=== PATIENT | female | born 1950 | race Caucasian/White ===

== ENCOUNTER 2017-01-18 10:26 | Inpatient (IN) | payer MEDICARE, OTHER ==
[~2017-01-18] VITALS: Ht 165.1 cm; Wt 69.8 kg
[2017-01-18] MEDS ORDERED: SIMV-259 GT (10:39)
[2017-01-18] MEDS ORDERED: FOLI1TAB15 PO (10:39)
[2017-01-18] MEDS ORDERED: GLYC1SOL PO (10:39)
[2017-01-18] MEDS ORDERED: POTA-9 PO (10:39)
[2017-01-18] MEDS ORDERED: FERR220E3 GT (10:39)
[2017-01-18 10:42] LABS: GLUCOSE,POINT OF CARE 105 MG/DL (70-110)
[2017-01-18] MEDS ORDERED: ALBUTEROL SULFATE 5 MG/ML 20 ML NEB SOLN [BULK] NEB ONE (11:30)
[2017-01-18] MEDS ORDERED: IPRATROPIUM BROMIDE 0.5 MG/2.5 ML NEB SOLUTION NEB ONE (11:30)
[2017-01-18] MEDS ORDERED: HEPARIN SODIUM,PORCINE 100 UNITS/ML 5 ML VIAL IVP ONE (12:00)
[2017-01-18 12:20] LABS: BASOPHILS # (AUTO) 0.02 K/uL (0.00-0.20); BASOPHILS % (AUTO) 0.1 % (0.0-2.0); EOSINOPHILS # (AUTO) 0.35 K/uL (0.00-0.70); EOSINOPHILS % (AUTO) 2.54 % (1.0-6.0); HEMATOCRIT 39.4 % (36-46); HEMOGLOBIN 12.3 g/dL (12.0-16.0); LYMPHOCYTES # (AUTO) 2.7 K/uL (1.0-4.8); LYMPHOCYTES % (AUTO) 19.2 % (22.0-44.0); MEAN CORPUSCULAR HEMOGLOBIN 29.1 pg (26.0-34.0); MEAN CORPUSCULAR HGB CONC 31.3 G/dL (31.0-37.0); MEAN CORPUSCULAR VOLUME 93 fL (80-100); MONOCYTES # (AUTO) 0.7 K/uL (0.1-1.0); MONOCYTES % (AUTO) 5.1 % (2.0-9.0); NEUTROPHILS # (AUTO) 10.1 K/uL (1.8-7.7); PLATELET COUNT (AUTO) 260 K/uL (150-450); RED BLOOD CELL COUNT(AUTO) 4.23 MIL/uL (4.00-5.20); WHITE BLOOD COUNT (AUTO) 13.8 K/uL (4.5-11.0)
[2017-01-18 12:39] LABS: ALANINE AMINOTRANSFERASE 24 U/L (12-78); ALBUMIN 2.9 g/dL (3.4-5.0); ANION GAP 8 mmol/L (8-16); ASPARTATE AMINOTRANSFERASE 19 U/L (15-37); BILIRUBIN,TOTAL 0.3 mg/dL (0.1-1.0); CALCIUM, TOTAL 9.7 mg/dL (8.8-10.5); CARBON DIOXIDE 30 mmol/L (22-29); CHLORIDE 102 mmol/L (98-107); CREATININE 0.78 mg/dL (0.60-1.30); GLOMERULAR FILTR. RATE CALC > 60 mL/min (>60); POTASSIUM 4.8 mmol/L (3.5-5.1); SODIUM SERUM 140 mmol/L (136-145); TOTAL PROTEIN, SERUM 7.7 g/dL (6.4-8.2); UREA NITROGEN, BLOOD 23 mg/dL (7-18)
[2017-01-18 12:49] LABS: APPEARANCE,URINE CLEAR (CLEAR); GLUCOSE, URINE (UA) NEGATIVE (NEGATIVE); KETONES,URINE NEGATIVE (NEGATIVE); LEUKOCYTE ESTERASE ,URINE TRACE (NEGATIVE); OCCULT BLOOD,URINE NEGATIVE (NEGATIVE); PROTEIN,URINE NEGATIVE (NEGATIVE)
[2017-01-18 12:56] LABS: ADD UA MICROSCOPIC YES
[2017-01-18 12:57] LABS: RBC,URINE None Seen /HPF (0-2); SQUAMOUS EPITHELIAL CELL,UR Few /LPF (None Seen)
[2017-01-18 13:46] LABS: LACTIC ACID 2.1 mmol/L (0.4-2.0)
[2017-01-18] MEDS ORDERED: NALOXONE HCL 1 MG/ML 2 ML SYG IVP ONE (14:15)
[2017-01-18 15:02] LABS: REFLEX LACTIC ACID? YES YES
[2017-01-18 17:09] VITALS: BP 127/83
[2017-01-18] MEDS ORDERED: ONDANSETRON HCL 4 MG/2 ML VIAL IVP PRN (19:15)
[2017-01-18] MEDS ORDERED: 0.9% SODIUM CHLORIDE 10 ML SYRINGE IVP PRN (19:15)
[2017-01-18] MEDS ORDERED: OxyCODONE HCL/ACETAMINOPHEN 5-325 MG TABLET PO PRN ×2 (19:15)
[2017-01-18] MEDS ORDERED: MAGNESIUM HYDROXIDE SUSPENSION 30 ML UDCUP PO PRN (19:15)
[2017-01-18] MEDS ORDERED: ACETAMINOPHEN 325 MG TABLET PO PRN (19:15)
[2017-01-18 19:33] VITALS: BP 148/76
[2017-01-18] MEDS: CefTRIAXone 1 GM/DEXTROSE 50 ML IV SCH (21:17)
[2017-01-18] MEDS: GLYCOPYRROLATE 1 MG TABLET PO SCH (21:17)
[2017-01-18] MEDS: FOLIC ACID 1 MG TABLET PO SCH (21:17)
[2017-01-18] MEDS: POTASSIUM CHLORIDE 20 MEQ ER TABLET PO SCH (21:17)
[2017-01-18] MEDS: SIMVASTATIN 10 MG TABLET GT SCH (21:17)
[2017-01-18] MEDS: DOCUSATE SODIUM 100 MG CAPSULE PO SCH (21:17)
[2017-01-18] MEDS: PANTOPRAZOLE SODIUM 40 MG/VIAL IVP SCH (21:17)
[2017-01-19 00:05] VITALS: BP 148/83
[2017-01-19 04:38] VITALS: BP 140/73
[2017-01-19 06:34] LABS: BASOPHILS % (AUTO) 0.2 % (0.0-2.0); EOSINOPHILS % (AUTO) 2.3 % (1.0-6.0); HEMATOCRIT 35.1 % (36-46); HEMOGLOBIN 11.2 g/dL (12.0-16.0); LYMPHOCYTES # (AUTO) 1.2 K/uL (1.0-4.8); LYMPHOCYTES % (AUTO) 10.5 % (22.0-44.0); MEAN CORPUSCULAR HEMOGLOBIN 29.5 pg (26.0-34.0); MEAN CORPUSCULAR HGB CONC 31.8 G/dL (31.0-37.0); MEAN CORPUSCULAR VOLUME 93 fL (80-100); MONOCYTES # (AUTO) 0.8 K/uL (0.1-1.0); MONOCYTES % (AUTO) 6.8 % (2.0-9.0); NEUTROPHILS # (AUTO) 9.4 K/uL (1.8-7.7); NEUTROPHILS % (AUTO) 80.2 % (40.0-70.0); PLATELET COUNT (AUTO) 264 K/uL (150-450); RED BLOOD CELL COUNT(AUTO) 3.78 MIL/uL (4.00-5.20); RED CELL DISTRIBUTION WIDTH 15.2 % (11.5-14.5); WHITE BLOOD COUNT (AUTO) 11.7 K/uL (4.5-11.0)
[2017-01-19 06:45] LABS: ANION GAP 8 mmol/L (8-16); CALCIUM, TOTAL 9.4 mg/dL (8.8-10.5); CARBON DIOXIDE 31 mmol/L (22-29); CHLORIDE 103 mmol/L (98-107); CREATININE 0.78 mg/dL (0.60-1.30); GLOMERULAR FILTR. RATE CALC > 60 mL/min (>60); POTASSIUM 4.7 mmol/L (3.5-5.1); SODIUM SERUM 142 mmol/L (136-145); UREA NITROGEN, BLOOD 19 mg/dL (7-18)
[2017-01-19 07:26] VITALS: BP 146/80
[2017-01-19] MEDS: PANTOPRAZOLE SODIUM 40 MG/VIAL IVP SCH (10:36)
[2017-01-19] MEDS: DOCUSATE SODIUM 100 MG CAPSULE PO SCH ×2 (10:36→20:14)
[2017-01-19] MEDS: FOLIC ACID 1 MG TABLET PO SCH (10:36)
[2017-01-19] MEDS: FERROUS SULFATE 300 MG/5 ML LIQUID UDCUP PO SCH (10:36)
[2017-01-19] MEDS: GLYCOPYRROLATE 1 MG TABLET PO SCH ×3 (10:37→20:15)
[2017-01-19] MEDS: POTASSIUM CHLORIDE 20 MEQ ER TABLET PO SCH (10:37)
[2017-01-19 11:53] VITALS: BP 143/78
[2017-01-19 15:50] VITALS: BP 148/70
[2017-01-19 19:42] VITALS: BP 107/42
[2017-01-19] MEDS: SIMVASTATIN 10 MG TABLET GT SCH (20:14)
[2017-01-19] MEDS: CefTRIAXone 1 GM/DEXTROSE 50 ML IV SCH (20:14)
[2017-01-20 00:13] VITALS: BP 139/55
[2017-01-20 04:01] VITALS: BP 141/45
[2017-01-20 07:04] VITALS: BP 124/77
[2017-01-20] MEDS: DOCUSATE SODIUM 100 MG CAPSULE PO SCH ×2 (08:56→20:05)
[2017-01-20] MEDS: PANTOPRAZOLE SODIUM 40 MG/VIAL IVP SCH (09:06)
[2017-01-20] MEDS: FERROUS SULFATE 300 MG/5 ML LIQUID UDCUP PO SCH (09:06)
[2017-01-20] MEDS: GLYCOPYRROLATE 1 MG TABLET PO SCH ×3 (09:07→20:05)
[2017-01-20] MEDS: POTASSIUM CHLORIDE 20 MEQ ER TABLET PO SCH (09:07)
[2017-01-20] MEDS: FOLIC ACID 1 MG TABLET PO SCH (09:07)
[2017-01-20 10:54] VITALS: BP 133/80
[2017-01-20 14:00] LABS: BASOPHILS % (AUTO) 0.4 % (0.0-2.0); HEMATOCRIT 35.1 % (36-46); HEMOGLOBIN 11.1 g/dL (12.0-16.0); LYMPHOCYTES % (AUTO) 10.3 % (22.0-44.0); MEAN CORPUSCULAR HEMOGLOBIN 28.8 pg (26.0-34.0); MEAN CORPUSCULAR HGB CONC 31.6 G/dL (31.0-37.0); MEAN CORPUSCULAR VOLUME 91 fL (80-100); MONOCYTES # (AUTO) 0.7 K/uL (0.1-1.0); MONOCYTES % (AUTO) 7.5 % (2.0-9.0); NEUTROPHILS # (AUTO) 7.3 K/uL (1.8-7.7); NEUTROPHILS % (AUTO) 78.8 % (40.0-70.0); PLATELET COUNT (AUTO) 275 K/uL (150-450); RED BLOOD CELL COUNT(AUTO) 3.85 MIL/uL (4.00-5.20); RED CELL DISTRIBUTION WIDTH 15.3 % (11.5-14.5); WHITE BLOOD COUNT (AUTO) 9.3 K/uL (4.5-11.0)
[2017-01-20 14:16] LABS: ANION GAP 8 mmol/L (8-16); CALCIUM, TOTAL 9.3 mg/dL (8.8-10.5); CARBON DIOXIDE 31 mmol/L (22-29); CHLORIDE 101 mmol/L (98-107); CREATININE 0.73 mg/dL (0.60-1.30); GLOMERULAR FILTR. RATE CALC > 60 mL/min (>60); POTASSIUM 4.7 mmol/L (3.5-5.1); SODIUM SERUM 140 mmol/L (136-145); UREA NITROGEN, BLOOD 21 mg/dL (7-18)
[2017-01-20 14:22] LABS: ALANINE AMINOTRANSFERASE 24 U/L (12-78); ALBUMIN 2.8 g/dL (3.4-5.0); ASPARTATE AMINOTRANSFERASE 17 U/L (15-37); BILIRUBIN,TOTAL 0.3 mg/dL (0.1-1.0); TOTAL PROTEIN, SERUM 7.2 g/dL (6.4-8.2)
[2017-01-20 15:18] VITALS: BP 133/68
[2017-01-20 19:07] VITALS: BP 137/64
[2017-01-20] MEDS ORDERED: SODIUM CHLORIDE 0.9% 500 ML IV ONE (20:03)
[2017-01-20] MEDS: SIMVASTATIN 10 MG TABLET GT SCH (20:08)
[2017-01-20] MEDS: CefTRIAXone 1 GM/DEXTROSE 50 ML IV SCH (20:09)
[2017-01-21] VITALS (7 sets, daily range): BP systolic 128–149; BP diastolic 63–94
[2017-01-21] MEDS: FERROUS SULFATE 300 MG/5 ML LIQUID UDCUP PO SCH (08:43)
[2017-01-21] MEDS: FOLIC ACID 1 MG TABLET PO SCH (08:43)
[2017-01-21] MEDS: POTASSIUM CHLORIDE 20 MEQ ER TABLET PO SCH (08:43)
[2017-01-21] MEDS: GLYCOPYRROLATE 1 MG TABLET PO SCH ×3 (08:43→19:54)
[2017-01-21] MEDS: DOCUSATE SODIUM 100 MG CAPSULE PO SCH ×2 (08:43→19:54)
[2017-01-21] MEDS: PANTOPRAZOLE SODIUM 40 MG/VIAL IVP SCH (08:43)
[2017-01-21 15:14] LABS: BASOPHILS % (AUTO) 0.2 % (0.0-2.0); EOSINOPHILS % (AUTO) 3.8 % (1.0-6.0); HEMATOCRIT 38.1 % (36-46); HEMOGLOBIN 11.9 g/dL (12.0-16.0); LYMPHOCYTES # (AUTO) 1.3 K/uL (1.0-4.8); LYMPHOCYTES % (AUTO) 15.7 % (22.0-44.0); MEAN CORPUSCULAR HGB CONC 31.3 G/dL (31.0-37.0); MEAN CORPUSCULAR VOLUME 93 fL (80-100); MONOCYTES # (AUTO) 0.8 K/uL (0.1-1.0); MONOCYTES % (AUTO) 9.4 % (2.0-9.0); NEUTROPHILS # (AUTO) 5.9 K/uL (1.8-7.7); NEUTROPHILS % (AUTO) 70.9 % (40.0-70.0); PLATELET COUNT (AUTO) 279 K/uL (150-450); RED BLOOD CELL COUNT(AUTO) 4.11 MIL/uL (4.00-5.20); RED CELL DISTRIBUTION WIDTH 15.4 % (11.5-14.5); WHITE BLOOD COUNT (AUTO) 8.4 K/uL (4.5-11.0)
[2017-01-21 15:22] LABS: ANION GAP 5 mmol/L (8-16); CALCIUM, TOTAL 9.5 mg/dL (8.8-10.5); CARBON DIOXIDE 33 mmol/L (22-29); CHLORIDE 103 mmol/L (98-107); CREATININE 0.71 mg/dL (0.60-1.30); GLOMERULAR FILTR. RATE CALC > 60 mL/min (>60); POTASSIUM 5.2 mmol/L (3.5-5.1); SODIUM SERUM 141 mmol/L (136-145); UREA NITROGEN, BLOOD 21 mg/dL (7-18)
[2017-01-21 15:27] LABS: ALANINE AMINOTRANSFERASE 26 U/L (12-78); ALBUMIN 2.9 g/dL (3.4-5.0); ASPARTATE AMINOTRANSFERASE 22 U/L (15-37); BILIRUBIN,TOTAL 0.2 mg/dL (0.1-1.0); TOTAL PROTEIN, SERUM 7.6 g/dL (6.4-8.2)
[2017-01-21] MEDS: SIMVASTATIN 10 MG TABLET GT SCH (19:54)
[2017-01-21] MEDS: CefTRIAXone 1 GM/DEXTROSE 50 ML IV SCH (20:11)
[2017-01-22 03:45] VITALS: BP 130/82
[2017-01-22 07:36] VITALS: BP 133/74
[2017-01-22] MEDS: FOLIC ACID 1 MG TABLET PO SCH (08:32)
[2017-01-22] MEDS: POTASSIUM CHLORIDE 20 MEQ ER TABLET PO SCH (08:32)
[2017-01-22] MEDS: GLYCOPYRROLATE 1 MG TABLET PO SCH ×2 (08:32→15:50)
[2017-01-22] MEDS: DOCUSATE SODIUM 100 MG CAPSULE PO SCH (08:32)
[2017-01-22] MEDS: FERROUS SULFATE 300 MG/5 ML LIQUID UDCUP PO SCH (08:32)
[2017-01-22] MEDS: PANTOPRAZOLE SODIUM 40 MG/VIAL IVP SCH (08:33)
[2017-01-22 11:34] VITALS: BP 140/63
[2017-01-22 15:16] VITALS: BP 141/83
== END 2017-01-22 19:30 | DRG 871 ==
LOC: EMS 10:27 → 5S 15:59 → 6N 01-20 19:00
PROVIDERS: ADMIT Hospitalist; ATTEND Hospitalist
DX: A41.9 Sepsis, unspecified organism (principal); G93.41 Metabolic encephalopathy; J18.9 Pneumonia, unspecified organism; E44.0 Moderate protein-calorie malnutrition; I48.91 Unspecified atrial fibrillation; I50.9 Heart failure, unspecified; E78.00 Pure hypercholesterolemia, unspecified; G80.9 Cerebral palsy, unspecified; R13.0 Aphagia; Z68.25 Body mass index [BMI] 25.0-25.9, adult; Z79.899 Other long term (current) drug therapy; Z93.1 Gastrostomy status; Z87.01 Personal history of pneumonia (recurrent); Z86.14 Personal history of Methicillin resistant Staphylococcus aureus infection
CPT/HCPCS: 51702; 70450; 82962; 83605; 87040; 87081; 93005; 94644; 96374; 96375; 99285; C9113; J0696; J1642; J2310; J7040

== ENCOUNTER 2017-01-26 12:40 | Emergency (ER) | payer MEDICARE, OTHER ==
[~2017-01-26] VITALS: Ht 157.5 cm; Wt 70.9 kg
[~2017-01-26 12:40] MED LIST: FERR220E3 GT; FOLI1TAB15 PO; GLYC1SOL PO; POTA-9 PO; SIMV-259 GT
[2017-01-26 13:55] LABS: BASOPHILS % (AUTO) 0.2 % (0.0-2.0); EOSINOPHILS % (AUTO) 0.2 % (1.0-6.0); HEMATOCRIT 37.2 % (36-46); HEMOGLOBIN 11.7 g/dL (12.0-16.0); LYMPHOCYTES # (AUTO) 0.7 K/uL (1.0-4.8); LYMPHOCYTES % (AUTO) 6.8 % (22.0-44.0); MEAN CORPUSCULAR HEMOGLOBIN 28.9 pg (26.0-34.0); MEAN CORPUSCULAR HGB CONC 31.5 G/dL (31.0-37.0); MEAN CORPUSCULAR VOLUME 92 fL (80-100); MONOCYTES # (AUTO) 0.3 K/uL (0.1-1.0); MONOCYTES % (AUTO) 2.7 % (2.0-9.0); NEUTROPHILS # (AUTO) 9.2 K/uL (1.8-7.7); NEUTROPHILS % (AUTO) 90.1 % (40.0-70.0); PLATELET COUNT (AUTO) 257 K/uL (150-450); RED BLOOD CELL COUNT(AUTO) 4.06 MIL/uL (4.00-5.20); RED CELL DISTRIBUTION WIDTH 15.4 % (11.5-14.5); WHITE BLOOD COUNT (AUTO) 10.2 K/uL (4.5-11.0)
[2017-01-26] MEDS ORDERED: LORazepam 2 MG/ML VIAL IVP ONE (14:00)
[2017-01-26 14:07] LABS: CALCIUM, TOTAL 9.1 mg/dL (8.8-10.5); CREATININE 1.35 mg/dL (0.60-1.30); POTASSIUM 5.4 mmol/L (3.5-5.1)
[2017-01-26 14:13] LABS: ALBUMIN 2.7 g/dL (3.4-5.0); BILIRUBIN,TOTAL 0.3 mg/dL (0.1-1.0); TOTAL PROTEIN, SERUM 7.2 g/dL (6.4-8.2)
[2017-01-26 14:15] LABS: LACTIC ACID 1.7 mmol/L (0.4-2.0)
[2017-01-26 14:16] LABS: TROPONIN I < 0.02 ng/mL (0.00-0.05)
[2017-01-26 14:22] LABS: GLUCOSE COMMENT 1 Repeated; GLUCOSE,POINT OF CARE 105 MG/DL (70-110)
[2017-01-26 14:23] LABS: AMMONIA 16 umol/L (11-32)
[2017-01-26] MEDS ORDERED: SODIUM POLYSTYRENE SULFONATE 15 GM/60 ML SUSPENSION BOTTLE PR ONE (14:45)
[2017-01-26] MEDS ORDERED: INSULIN REGULAR, HUMAN 100 UNITS/ML IVP ONE (14:45)
[2017-01-26] MEDS ORDERED: DEXTROSE 50%-WATER 25 GM/50 ML SYRINGE IVP ONE (14:45)
[2017-01-26] MEDS ORDERED: CALCIUM GLUCONATE 100 MG/ML 10 ML IVP ONE (14:45)
[2017-01-26] MEDS ORDERED: SODIUM POLYSTYRENE SULFONATE 15 GM/60 ML SUSPENSION BOTTLE PO ONE (15:30)
[2017-01-26] MEDS ORDERED: SODIUM CHLORIDE 0.9% 1,000 ML IV ONE (16:15)
[2017-01-26 16:26] LABS: APPEARANCE,URINE CLEAR (CLEAR); GLUCOSE, URINE (UA) 250 mg/dL (NEGATIVE); KETONES,URINE NEGATIVE (NEGATIVE); LEUKOCYTE ESTERASE ,URINE NEGATIVE (NEGATIVE); OCCULT BLOOD,URINE NEGATIVE (NEGATIVE); PROTEIN,URINE NEGATIVE (NEGATIVE)
[2017-01-26 16:27] LABS: GLUCOSE,POINT OF CARE 70 MG/DL (70-110)
[2017-01-26 16:29] LABS: RBC,URINE 0-2 /HPF (0-2); SQUAMOUS EPITHELIAL CELL,UR Few /LPF (None Seen); WBC,URINE 0-2 /HPF (0-5)
[2017-01-26 18:07] LABS: GLUCOSE,POINT OF CARE 77 MG/DL (70-110)
[2017-01-26 18:11] LABS: CREATININE 1.34 mg/dL (0.60-1.30); POTASSIUM 4.8 mmol/L (3.5-5.1)
[2017-01-26 18:17] VITALS: BP 132/88
[2017-01-26 18:17] LABS: ALBUMIN 2.8 g/dL (3.4-5.0); BILIRUBIN,TOTAL 0.4 mg/dL (0.1-1.0); TOTAL PROTEIN, SERUM 7.3 g/dL (6.4-8.2)
== END 2017-01-26 19:01 | disposition home or self-care (01) ==
LOC: EMS 12:42
DX: E87.5 Hyperkalemia (principal); N28.9 Disorder of kidney and ureter, unspecified; E78.00 Pure hypercholesterolemia, unspecified; I48.91 Unspecified atrial fibrillation
CPT/HCPCS: 36415; 51701; 71010; 80053; 80307; 81001; 82140; 82948; 82962; 83605; 83690; 83880; 84484; 85025; 87040; 93005; 96360; 96361; 96374; 96375; 99285; J0610; J1815; J2060; J7030

== ENCOUNTER 2017-02-04 14:08 | Inpatient (IN) | payer MEDICARE, OTHER ==
[~2017-02-04] VITALS: Ht 157.5 cm; Wt 72.0 kg
[2017-02-04 15:08] LABS: BASOPHILS % (AUTO) 0.1 % (0.0-2.0); EOSINOPHILS % (AUTO) 1.5 % (1.0-6.0); LYMPHOCYTES # (AUTO) 1.5 K/uL (1.0-4.8); LYMPHOCYTES % (AUTO) 13.7 % (22.0-44.0); MEAN CORPUSCULAR HEMOGLOBIN 28.8 pg (26.0-34.0); MEAN CORPUSCULAR HGB CONC 31.6 G/dL (31.0-37.0); MEAN CORPUSCULAR VOLUME 91 fL (80-100); MONOCYTES # (AUTO) 0.4 K/uL (0.1-1.0); MONOCYTES % (AUTO) 3.8 % (2.0-9.0); NEUTROPHILS # (AUTO) 9.1 K/uL (1.8-7.7); NEUTROPHILS % (AUTO) 80.9 % (40.0-70.0); PLATELET COUNT (AUTO) 371 K/uL (150-450); RED CELL DISTRIBUTION WIDTH 15.7 % (11.5-14.5); WHITE BLOOD COUNT (AUTO) 11.3 K/uL (4.5-11.0)
[2017-02-04] MEDS ORDERED: MONT10TA21 PO (15:27)
[2017-02-04] MEDS ORDERED: IPRA3AMP4 NEB (15:27)
[2017-02-04] MEDS ORDERED: METO-296 PO (15:27)
[2017-02-04] MEDS ORDERED: FAMO20 PO (15:27)
[2017-02-04] MEDS ORDERED: LANS30 PO (15:27)
[2017-02-04] MEDS ORDERED: VITAD1000 PO (15:27)
[2017-02-04] MEDS ORDERED: DEXT1CAP3 PO (15:27)
[2017-02-04] MEDS ORDERED: SIMV-259 PO (15:27)
[2017-02-04] MEDS ORDERED: OLAN5TAB2 PO (15:27)
[2017-02-04 15:55] LABS: CALCIUM, TOTAL 9.3 mg/dL (8.8-10.5); CREATININE 0.95 mg/dL (0.60-1.30); POTASSIUM 5.2 mmol/L (3.5-5.1)
[2017-02-04 16:04] LABS: ALBUMIN 3.6 g/dL (3.4-5.0); BILIRUBIN,TOTAL 0.3 mg/dL (0.1-1.0); TOTAL PROTEIN, SERUM 8.7 g/dL (6.4-8.2)
[2017-02-04] MEDS ORDERED: SODIUM BICARBONATE [ADULT] 8.4% 50 MEQ/50 ML SYRINGE IVP ONE (16:15)
[2017-02-04] MEDS ORDERED: DEXTROSE 50%-WATER 25 GM/50 ML SYRINGE IVP ONE (16:15)
[2017-02-04] MEDS ORDERED: INSULIN REGULAR, HUMAN 100 UNITS/ML IVP ONE (16:15)
[2017-02-04] MEDS ORDERED: LORazepam 2 MG/ML VIAL IM ONE (16:45)
[2017-02-04] MEDS ORDERED: SODIUM CHLORIDE 0.9% 1,000 ML IV ONE (17:00)
[2017-02-04] MEDS ORDERED: KDUR20 PO (18:06)
[2017-02-04] MEDS ORDERED: DiphenhydrAMINE HCL 50 MG/ML VIAL IM ONE (18:15)
[2017-02-04] MEDS ORDERED: HALOPERIDOL LACTATE 5 MG/ML VIAL IM ONE (18:15)
[2017-02-04] MEDS ORDERED: 0.9% SODIUM CHLORIDE 10 ML SYRINGE IVP PRN (22:00)
[2017-02-04] MEDS ORDERED: ACETAMINOPHEN 325 MG TABLET PO PRN ×2 (22:00→23:00)
[2017-02-04] MEDS ORDERED: LORazepam 2 MG/ML VIAL IVP ONE (22:00)
[2017-02-04] MEDS ORDERED: MORPHINE SULFATE 2 MG/ML SYRINGE IVP PRN (23:00)
[2017-02-04] MEDS ORDERED: BISACODYL 10 MG RECTAL RECTAL SUPPOSITORY PR PRN (23:00)
[2017-02-04] MEDS ORDERED: ZOLPIDEM TARTRATE 5 MG TABLET PO PRN (23:00)
[2017-02-04] MEDS ORDERED: ALBUTEROL SULFATE 2.5 MG/0.5 ML NEB SOLUTION NEB PRN (23:00)
[2017-02-04] MEDS ORDERED: IPRATROPIUM BROMIDE 0.5 MG/2.5 ML NEB SOLUTION NEB PRN (23:00)
[2017-02-05] VITALS (7 sets, daily range): BP systolic 123–152; BP diastolic 68–96
[2017-02-05] MEDS: DEXTROSE 5%-0.45% SODIUM CHL 1,000 ML IV SCH ×2 (06:21→16:00)
[2017-02-05 06:43] LABS: BASOPHILS % (AUTO) 0.3 % (0.0-2.0); EOSINOPHILS % (AUTO) 2.4 % (1.0-6.0); HEMATOCRIT 35.3 % (36-46); LYMPHOCYTES % (AUTO) 19.8 % (22.0-44.0); MEAN CORPUSCULAR HEMOGLOBIN 28.4 pg (26.0-34.0); MEAN CORPUSCULAR HGB CONC 31.2 G/dL (31.0-37.0); MEAN CORPUSCULAR VOLUME 91 fL (80-100); MONOCYTES # (AUTO) 0.9 K/uL (0.1-1.0); MONOCYTES % (AUTO) 8.7 % (2.0-9.0); NEUTROPHILS # (AUTO) 7.1 K/uL (1.8-7.7); NEUTROPHILS % (AUTO) 68.8 % (40.0-70.0); PLATELET COUNT (AUTO) 281 K/uL (150-450); RED BLOOD CELL COUNT(AUTO) 3.88 MIL/uL (4.00-5.20); RED CELL DISTRIBUTION WIDTH 15.2 % (11.5-14.5); WHITE BLOOD COUNT (AUTO) 10.3 K/uL (4.5-11.0)
[2017-02-05 07:06] LABS: ALANINE AMINOTRANSFERASE 22 U/L (12-78); ALBUMIN 2.9 g/dL (3.4-5.0); ANION GAP 7 mmol/L (8-16); ASPARTATE AMINOTRANSFERASE 14 U/L (15-37); BILIRUBIN,TOTAL 0.3 mg/dL (0.1-1.0); CARBON DIOXIDE 31 mmol/L (22-29); CHLORIDE 106 mmol/L (98-107); CREATININE 0.88 mg/dL (0.60-1.30); GLOMERULAR FILTR. RATE CALC > 60 mL/min (>60); PHOSPHORUS 3.6 mg/dL (2.5-4.9); POTASSIUM 4.1 mmol/L (3.5-5.1); SODIUM SERUM 144 mmol/L (136-145); THYROID STIMULATING HORMONE 0.79 uIU/mL (0.36-3.74); UREA NITROGEN, BLOOD 14 mg/dL (7-18)
[2017-02-05 07:21] LABS: PROTHROMBIN TIME 10.9 SEC (9.4-11.6)
[2017-02-05] MEDS: NYSTATIN 15 GM POWDER BOTTLE TP SCH ×2 (09:10→21:00)
[2017-02-05] MEDS: FAMOTIDINE 20 MG TABLET PO SCH ×2 (09:10→20:17)
[2017-02-05] MEDS: HEPARIN SODIUM,PORCINE 5,000 UNITS/ML VIAL SQ SCH ×2 (09:10→20:19)
[2017-02-05] MEDS: OxyCODONE HCL/ACETAMINOPHEN 5-325 MG TABLET PO PRN ×2 (09:10→20:17)
[2017-02-05] MEDS: METOCLOPRAMIDE HCL 10 MG TABLET PO SCH ×3 (09:10→20:16)
[2017-02-05] MEDS: FOLIC ACID 1 MG TABLET PO SCH (09:10)
[2017-02-05] MEDS: MONTELUKAST SODIUM 10 MG TABLET PO SCH (09:11)
[2017-02-05] MEDS: OLANZapine 5 MG TABLET PO SCH ×3 (09:11→20:17)
[2017-02-05] MEDS: DEXTROMETHORPHAN HBR/QUINIDINE 20/10 MG CAPSULE PO SCH (09:11)
[2017-02-05] MEDS: LORazepam 2 MG/ML VIAL IVP PRN (09:26)
[2017-02-05] MEDS: SIMVASTATIN 10 MG TABLET PO SCH (20:16)
[2017-02-06] MEDS: DEXTROSE 5%-0.45% SODIUM CHL 1,000 ML IV SCH ×2 (02:00→16:22)
[2017-02-06 03:30] VITALS: BP 128/74
[2017-02-06] MEDS: MONTELUKAST SODIUM 10 MG TABLET PO SCH (11:23)
[2017-02-06] MEDS: METOCLOPRAMIDE HCL 10 MG TABLET PO SCH ×3 (11:23→21:48)
[2017-02-06] MEDS: OLANZapine 5 MG TABLET PO SCH ×3 (11:23→21:48)
[2017-02-06] MEDS: FAMOTIDINE 20 MG TABLET PO SCH ×2 (11:23→21:48)
[2017-02-06] MEDS: DEXTROMETHORPHAN HBR/QUINIDINE 20/10 MG CAPSULE PO SCH (11:23)
[2017-02-06] MEDS: FOLIC ACID 1 MG TABLET PO SCH (11:23)
[2017-02-06] MEDS: HEPARIN SODIUM,PORCINE 5,000 UNITS/ML VIAL SQ SCH ×2 (11:28→21:48)
[2017-02-06] MEDS: NYSTATIN 15 GM POWDER BOTTLE TP SCH ×2 (11:28→21:49)
[2017-02-06 11:38] VITALS: BP 116/71
[2017-02-06 15:37] VITALS: BP 126/83
[2017-02-06] MEDS: LORazepam 2 MG/ML VIAL IVP PRN (15:42)
[2017-02-06] MEDS ORDERED: DIVALPROEX SODIUM 500 MG DR TABLET PO SCH (16:00)
[2017-02-06] MEDS: VALPROIC ACID 250 MG/5 ML SYRUP UDCUP PO SCH ×2 (16:57→21:48)
[2017-02-06 21:00] VITALS: BP 132/100
[2017-02-06] MEDS: SIMVASTATIN 10 MG TABLET PO SCH (21:48)
[2017-02-07 00:05] VITALS: BP 128/79
[2017-02-07 05:30] VITALS: BP 128/55
[2017-02-07 08:42] VITALS: BP 126/63
[2017-02-07] MEDS: VALPROIC ACID 250 MG/5 ML SYRUP UDCUP PO SCH ×3 (08:43→20:50)
[2017-02-07] MEDS: FAMOTIDINE 20 MG TABLET PO SCH ×2 (08:43→20:51)
[2017-02-07] MEDS: METOCLOPRAMIDE HCL 10 MG TABLET PO SCH ×3 (08:44→20:50)
[2017-02-07] MEDS: FOLIC ACID 1 MG TABLET PO SCH (08:44)
[2017-02-07] MEDS: DEXTROMETHORPHAN HBR/QUINIDINE 20/10 MG CAPSULE PO SCH (08:44)
[2017-02-07] MEDS: OLANZapine 5 MG TABLET PO SCH ×3 (08:44→20:50)
[2017-02-07] MEDS: HEPARIN SODIUM,PORCINE 5,000 UNITS/ML VIAL SQ SCH ×2 (08:44→20:50)
[2017-02-07] MEDS: MONTELUKAST SODIUM 10 MG TABLET PO SCH (08:44)
[2017-02-07] MEDS: NYSTATIN 15 GM POWDER BOTTLE TP SCH ×2 (08:45→21:01)
[2017-02-07] MEDS: DEXTROSE 5%-0.45% SODIUM CHL 1,000 ML IV SCH (09:20)
[2017-02-07 11:40] VITALS: BP 119/70
[2017-02-07 15:02] VITALS: BP 132/69
[2017-02-07 19:46] VITALS: BP 136/74
[2017-02-07] MEDS: SIMVASTATIN 10 MG TABLET PO SCH (20:50)
[2017-02-07 23:52] LABS: BASOPHILS % (AUTO) 0.4 % (0.0-2.0); EOSINOPHILS % (AUTO) 3.4 % (1.0-6.0); HEMATOCRIT 35.6 % (36-46); HEMOGLOBIN 11.3 g/dL (12.0-16.0); LYMPHOCYTES # (AUTO) 1.4 K/uL (1.0-4.8); LYMPHOCYTES % (AUTO) 19.5 % (22.0-44.0); MEAN CORPUSCULAR HEMOGLOBIN 28.9 pg (26.0-34.0); MEAN CORPUSCULAR HGB CONC 31.8 G/dL (31.0-37.0); MEAN CORPUSCULAR VOLUME 91 fL (80-100); MONOCYTES # (AUTO) 0.5 K/uL (0.1-1.0); MONOCYTES % (AUTO) 7.3 % (2.0-9.0); NEUTROPHILS # (AUTO) 5.1 K/uL (1.8-7.7); NEUTROPHILS % (AUTO) 69.4 % (40.0-70.0); PLATELET COUNT (AUTO) 333 K/uL (150-450); RED BLOOD CELL COUNT(AUTO) 3.91 MIL/uL (4.00-5.20); RED CELL DISTRIBUTION WIDTH 16.1 % (11.5-14.5); WHITE BLOOD COUNT (AUTO) 7.3 K/uL (4.5-11.0)
[2017-02-08] LABS: ANION GAP 8 mmol/L (8-16); CALCIUM, TOTAL 9.2 mg/dL (8.8-10.5); CARBON DIOXIDE 32 mmol/L (22-29); CHLORIDE 103 mmol/L (98-107); CREATININE 0.85 mg/dL (0.60-1.30); GLOMERULAR FILTR. RATE CALC > 60 mL/min (>60); POTASSIUM 4.1 mmol/L (3.5-5.1); SODIUM SERUM 143 mmol/L (136-145); UREA NITROGEN, BLOOD 14 mg/dL (7-18)
[2017-02-08 00:06] LABS: ALANINE AMINOTRANSFERASE 22 U/L (12-78); ALBUMIN 2.9 g/dL (3.4-5.0); ASPARTATE AMINOTRANSFERASE 14 U/L (15-37); BILIRUBIN,TOTAL 0.2 mg/dL (0.1-1.0); TOTAL PROTEIN, SERUM 7.1 g/dL (6.4-8.2)
[2017-02-08 05:56] VITALS: BP 118/72
[2017-02-08 06:31] LABS: BASOPHILS % (AUTO) 0.3 % (0.0-2.0); EOSINOPHILS % (AUTO) 3.8 % (1.0-6.0); HEMATOCRIT 35.7 % (36-46); HEMOGLOBIN 11.4 g/dL (12.0-16.0); LYMPHOCYTES # (AUTO) 1.4 K/uL (1.0-4.8); LYMPHOCYTES % (AUTO) 20.4 % (22.0-44.0); MEAN CORPUSCULAR HEMOGLOBIN 29.2 pg (26.0-34.0); MEAN CORPUSCULAR HGB CONC 31.8 G/dL (31.0-37.0); MEAN CORPUSCULAR VOLUME 92 fL (80-100); MONOCYTES # (AUTO) 0.5 K/uL (0.1-1.0); MONOCYTES % (AUTO) 7.8 % (2.0-9.0); NEUTROPHILS # (AUTO) 4.5 K/uL (1.8-7.7); NEUTROPHILS % (AUTO) 67.7 % (40.0-70.0); PLATELET COUNT (AUTO) 296 K/uL (150-450); RED BLOOD CELL COUNT(AUTO) 3.88 MIL/uL (4.00-5.20); RED CELL DISTRIBUTION WIDTH 15.8 % (11.5-14.5); WHITE BLOOD COUNT (AUTO) 6.7 K/uL (4.5-11.0)
[2017-02-08 07:06] LABS: ALANINE AMINOTRANSFERASE 19 U/L (12-78); ALBUMIN 2.8 g/dL (3.4-5.0); ANION GAP 5 mmol/L (8-16); ASPARTATE AMINOTRANSFERASE 13 U/L (15-37); BILIRUBIN,TOTAL 0.2 mg/dL (0.1-1.0); CALCIUM, TOTAL 9.2 mg/dL (8.8-10.5); CARBON DIOXIDE 32 mmol/L (22-29); CHLORIDE 106 mmol/L (98-107); CREATININE 0.83 mg/dL (0.60-1.30); GLOMERULAR FILTR. RATE CALC > 60 mL/min (>60); POTASSIUM 4.2 mmol/L (3.5-5.1); SODIUM SERUM 143 mmol/L (136-145); TOTAL PROTEIN, SERUM 6.9 g/dL (6.4-8.2); UREA NITROGEN, BLOOD 16 mg/dL (7-18)
[2017-02-08] MEDS: VALPROIC ACID 250 MG/5 ML SYRUP UDCUP PO SCH ×3 (08:21→19:58)
[2017-02-08] MEDS: FAMOTIDINE 20 MG TABLET PO SCH ×2 (08:21→19:58)
[2017-02-08] MEDS: MONTELUKAST SODIUM 10 MG TABLET PO SCH (08:21)
[2017-02-08] MEDS: FOLIC ACID 1 MG TABLET PO SCH (08:21)
[2017-02-08] MEDS: DEXTROMETHORPHAN HBR/QUINIDINE 20/10 MG CAPSULE PO SCH (08:21)
[2017-02-08] MEDS: OLANZapine 5 MG TABLET PO SCH ×3 (08:21→19:58)
[2017-02-08] MEDS: HEPARIN SODIUM,PORCINE 5,000 UNITS/ML VIAL SQ SCH ×2 (08:21→19:58)
[2017-02-08] MEDS: METOCLOPRAMIDE HCL 10 MG TABLET PO SCH ×3 (08:21→19:58)
[2017-02-08] MEDS: NYSTATIN 15 GM POWDER BOTTLE TP SCH ×2 (10:49→19:59)
[2017-02-08 15:15] VITALS: BP_SYST 142; BP_SYST 145; BP_DIAS 70; BP_DIAS 84
[2017-02-08 19:31] VITALS: BP 130/72
[2017-02-08] MEDS: SIMVASTATIN 10 MG TABLET PO SCH (19:58)
[2017-02-08 23:21] VITALS: BP 136/80
[2017-02-09 04:33] VITALS: BP 126/78
[2017-02-09 06:44] LABS: BASOPHILS % (AUTO) 0.3 % (0.0-2.0); EOSINOPHILS % (AUTO) 2.1 % (1.0-6.0); HEMATOCRIT 35.3 % (36-46); HEMOGLOBIN 11.2 g/dL (12.0-16.0); LYMPHOCYTES # (AUTO) 1.2 K/uL (1.0-4.8); LYMPHOCYTES % (AUTO) 16.6 % (22.0-44.0); MEAN CORPUSCULAR HEMOGLOBIN 29.1 pg (26.0-34.0); MEAN CORPUSCULAR HGB CONC 31.8 G/dL (31.0-37.0); MEAN CORPUSCULAR VOLUME 91 fL (80-100); MONOCYTES # (AUTO) 0.5 K/uL (0.1-1.0); MONOCYTES % (AUTO) 7.4 % (2.0-9.0); NEUTROPHILS # (AUTO) 5.4 K/uL (1.8-7.7); NEUTROPHILS % (AUTO) 73.6 % (40.0-70.0); PLATELET COUNT (AUTO) 274 K/uL (150-450); RED BLOOD CELL COUNT(AUTO) 3.87 MIL/uL (4.00-5.20); RED CELL DISTRIBUTION WIDTH 16.1 % (11.5-14.5); WHITE BLOOD COUNT (AUTO) 7.3 K/uL (4.5-11.0)
[2017-02-09 06:57] LABS: ALBUMIN 2.7 g/dL (3.4-5.0); BILIRUBIN,TOTAL 0.2 mg/dL (0.1-1.0); CALCIUM, TOTAL 9.2 mg/dL (8.8-10.5); CREATININE 0.96 mg/dL (0.60-1.30); POTASSIUM 4.1 mmol/L (3.5-5.1); TOTAL PROTEIN, SERUM 6.7 g/dL (6.4-8.2)
[2017-02-09 07:10] VITALS: BP 150/73
[2017-02-09] MEDS: FAMOTIDINE 20 MG TABLET PO SCH ×2 (09:05→20:37)
[2017-02-09] MEDS: METOCLOPRAMIDE HCL 10 MG TABLET PO SCH ×3 (09:05→20:37)
[2017-02-09] MEDS: MONTELUKAST SODIUM 10 MG TABLET PO SCH (09:05)
[2017-02-09] MEDS: FOLIC ACID 1 MG TABLET PO SCH (09:05)
[2017-02-09] MEDS: HEPARIN SODIUM,PORCINE 5,000 UNITS/ML VIAL SQ SCH ×2 (09:05→20:38)
[2017-02-09] MEDS: OLANZapine 5 MG TABLET PO SCH ×3 (09:05→20:37)
[2017-02-09] MEDS: VALPROIC ACID 250 MG/5 ML SYRUP UDCUP PO SCH ×3 (09:05→20:36)
[2017-02-09] MEDS: DEXTROMETHORPHAN HBR/QUINIDINE 20/10 MG CAPSULE PO SCH (09:05)
[2017-02-09] MEDS: NYSTATIN 15 GM POWDER BOTTLE TP SCH ×2 (09:06→20:40)
[2017-02-09 11:30] VITALS: BP 132/70
[2017-02-09 15:06] VITALS: BP 158/73
[2017-02-09 19:55] VITALS: BP 145/74
[2017-02-09] MEDS: SIMVASTATIN 10 MG TABLET PO SCH (20:36)
[2017-02-09] MEDS: OxyCODONE HCL/ACETAMINOPHEN 5-325 MG TABLET PO PRN (23:07)
[2017-02-09 23:30] VITALS: BP 148/76
[2017-02-10 03:30] VITALS: BP 141/73
[2017-02-10 06:23] LABS: BASOPHILS % (AUTO) 0.2 % (0.0-2.0); HEMATOCRIT 36.4 % (36-46); HEMOGLOBIN 11.5 g/dL (12.0-16.0); LYMPHOCYTES # (AUTO) 1.5 K/uL (1.0-4.8); LYMPHOCYTES % (AUTO) 22.7 % (22.0-44.0); MEAN CORPUSCULAR HEMOGLOBIN 28.6 pg (26.0-34.0); MEAN CORPUSCULAR HGB CONC 31.6 G/dL (31.0-37.0); MEAN CORPUSCULAR VOLUME 91 fL (80-100); MONOCYTES # (AUTO) 0.7 K/uL (0.1-1.0); MONOCYTES % (AUTO) 10.4 % (2.0-9.0); NEUTROPHILS # (AUTO) 4.3 K/uL (1.8-7.7); NEUTROPHILS % (AUTO) 63.7 % (40.0-70.0); PLATELET COUNT (AUTO) 307 K/uL (150-450); RED BLOOD CELL COUNT(AUTO) 4.01 MIL/uL (4.00-5.20); WHITE BLOOD COUNT (AUTO) 6.7 K/uL (4.5-11.0)
[2017-02-10 07:05] LABS: ALANINE AMINOTRANSFERASE 20 U/L (12-78); ALBUMIN 2.7 g/dL (3.4-5.0); ANION GAP 7 mmol/L (8-16); ASPARTATE AMINOTRANSFERASE 14 U/L (15-37); BILIRUBIN,TOTAL 0.3 mg/dL (0.1-1.0); CARBON DIOXIDE 31 mmol/L (22-29); CHLORIDE 100 mmol/L (98-107); CREATININE 0.85 mg/dL (0.60-1.30); GLOMERULAR FILTR. RATE CALC > 60 mL/min (>60); SODIUM SERUM 138 mmol/L (136-145); TOTAL PROTEIN, SERUM 6.9 g/dL (6.4-8.2); UREA NITROGEN, BLOOD 24 mg/dL (7-18)
[2017-02-10 07:50] VITALS: BP 112/60
[2017-02-10] MEDS: OLANZapine 5 MG TABLET PO SCH ×3 (08:14→19:38)
[2017-02-10] MEDS: HEPARIN SODIUM,PORCINE 5,000 UNITS/ML VIAL SQ SCH ×2 (08:14→19:38)
[2017-02-10] MEDS: VALPROIC ACID 250 MG/5 ML SYRUP UDCUP PO SCH ×3 (08:14→19:37)
[2017-02-10] MEDS: NYSTATIN 15 GM POWDER BOTTLE TP SCH ×2 (08:15→19:38)
[2017-02-10] MEDS: FAMOTIDINE 20 MG TABLET PO SCH ×2 (08:15→19:38)
[2017-02-10] MEDS: MONTELUKAST SODIUM 10 MG TABLET PO SCH (08:15)
[2017-02-10] MEDS: METOCLOPRAMIDE HCL 10 MG TABLET PO SCH ×3 (08:15→19:38)
[2017-02-10] MEDS: FOLIC ACID 1 MG TABLET PO SCH (08:15)
[2017-02-10] MEDS: DEXTROMETHORPHAN HBR/QUINIDINE 20/10 MG CAPSULE PO SCH (08:15)
[2017-02-10 11:30] VITALS: BP 116/58
[2017-02-10 15:53] VITALS: BP 125/84
[2017-02-10 19:18] VITALS: BP 132/69
[2017-02-10] MEDS: SIMVASTATIN 10 MG TABLET PO SCH (19:37)
[2017-02-11 00:33] VITALS: BP 140/89
[2017-02-11] MEDS: LORazepam 2 MG/ML VIAL IVP PRN (03:13)
[2017-02-11 06:58] LABS: BASOPHILS % (AUTO) 0.1 % (0.0-2.0); EOSINOPHILS % (AUTO) 2.8 % (1.0-6.0); HEMOGLOBIN 11.3 g/dL (12.0-16.0); LYMPHOCYTES # (AUTO) 1.5 K/uL (1.0-4.8); LYMPHOCYTES % (AUTO) 23.5 % (22.0-44.0); MEAN CORPUSCULAR HEMOGLOBIN 28.5 pg (26.0-34.0); MEAN CORPUSCULAR HGB CONC 31.4 G/dL (31.0-37.0); MEAN CORPUSCULAR VOLUME 91 fL (80-100); MONOCYTES # (AUTO) 0.6 K/uL (0.1-1.0); MONOCYTES % (AUTO) 9.9 % (2.0-9.0); NEUTROPHILS # (AUTO) 4.1 K/uL (1.8-7.7); NEUTROPHILS % (AUTO) 63.7 % (40.0-70.0); PLATELET COUNT (AUTO) 274 K/uL (150-450); RED BLOOD CELL COUNT(AUTO) 3.97 MIL/uL (4.00-5.20); RED CELL DISTRIBUTION WIDTH 15.4 % (11.5-14.5); WHITE BLOOD COUNT (AUTO) 6.4 K/uL (4.5-11.0)
[2017-02-11 07:14] LABS: ALANINE AMINOTRANSFERASE 19 U/L (12-78); ALBUMIN 2.7 g/dL (3.4-5.0); ANION GAP 5 mmol/L (8-16); ASPARTATE AMINOTRANSFERASE 13 U/L (15-37); BILIRUBIN,TOTAL 0.2 mg/dL (0.1-1.0); CALCIUM, TOTAL 8.8 mg/dL (8.8-10.5); CARBON DIOXIDE 33 mmol/L (22-29); CHLORIDE 100 mmol/L (98-107); CREATININE 0.85 mg/dL (0.60-1.30); GLOMERULAR FILTR. RATE CALC > 60 mL/min (>60); POTASSIUM 4.2 mmol/L (3.5-5.1); SODIUM SERUM 138 mmol/L (136-145); TOTAL PROTEIN, SERUM 6.9 g/dL (6.4-8.2); UREA NITROGEN, BLOOD 22 mg/dL (7-18)
[2017-02-11 07:36] VITALS: BP 148/76
[2017-02-11] MEDS: DEXTROMETHORPHAN HBR/QUINIDINE 20/10 MG CAPSULE PO SCH (07:45)
[2017-02-11] MEDS: VALPROIC ACID 250 MG/5 ML SYRUP UDCUP PO SCH ×3 (07:45→19:29)
[2017-02-11] MEDS: FOLIC ACID 1 MG TABLET PO SCH (07:45)
[2017-02-11] MEDS: MAGNESIUM HYDROXIDE SUSPENSION 30 ML UDCUP PO PRN (07:45)
[2017-02-11] MEDS: OLANZapine 5 MG TABLET PO SCH ×3 (07:45→19:30)
[2017-02-11] MEDS: FAMOTIDINE 20 MG TABLET PO SCH ×2 (07:45→19:30)
[2017-02-11] MEDS: METOCLOPRAMIDE HCL 10 MG TABLET PO SCH ×3 (07:45→19:30)
[2017-02-11] MEDS: MONTELUKAST SODIUM 10 MG TABLET PO SCH (07:45)
[2017-02-11] MEDS: HEPARIN SODIUM,PORCINE 5,000 UNITS/ML VIAL SQ SCH ×2 (07:46→19:30)
[2017-02-11] MEDS: NYSTATIN 15 GM POWDER BOTTLE TP SCH ×2 (07:46→19:30)
[2017-02-11 11:13] VITALS: BP 145/74
[2017-02-11 15:07] VITALS: BP 142/75
[2017-02-11] MEDS: SIMVASTATIN 10 MG TABLET PO SCH (19:29)
[2017-02-11] MEDS: MUPIROCIN CALCIUM 2% 22 GM OINTMENT NASAL SCH (19:29)
[2017-02-11 20:51] VITALS: BP 140/89
[2017-02-12 04:35] VITALS: BP 128/59
[2017-02-12 06:39] LABS: BASOPHILS % (AUTO) 0.1 % (0.0-2.0); HEMATOCRIT 39.5 % (36-46); HEMOGLOBIN 12.4 g/dL (12.0-16.0); LYMPHOCYTES # (AUTO) 1.8 K/uL (1.0-4.8); LYMPHOCYTES % (AUTO) 21.3 % (22.0-44.0); MEAN CORPUSCULAR HEMOGLOBIN 28.9 pg (26.0-34.0); MEAN CORPUSCULAR HGB CONC 31.4 G/dL (31.0-37.0); MEAN CORPUSCULAR VOLUME 92 fL (80-100); MONOCYTES # (AUTO) 0.7 K/uL (0.1-1.0); MONOCYTES % (AUTO) 8.1 % (2.0-9.0); NEUTROPHILS # (AUTO) 5.9 K/uL (1.8-7.7); NEUTROPHILS % (AUTO) 68.5 % (40.0-70.0); PLATELET COUNT (AUTO) 282 K/uL (150-450); RED BLOOD CELL COUNT(AUTO) 4.29 MIL/uL (4.00-5.20); RED CELL DISTRIBUTION WIDTH 15.9 % (11.5-14.5); WHITE BLOOD COUNT (AUTO) 8.6 K/uL (4.5-11.0)
[2017-02-12 07:13] LABS: ALBUMIN 3.1 g/dL (3.4-5.0); BILIRUBIN,TOTAL 0.3 mg/dL (0.1-1.0); CALCIUM, TOTAL 9.3 mg/dL (8.8-10.5); CREATININE 0.98 mg/dL (0.60-1.30); POTASSIUM 4.8 mmol/L (3.5-5.1); TOTAL PROTEIN, SERUM 7.6 g/dL (6.4-8.2)
[2017-02-12 07:44] VITALS: BP 124/81
[2017-02-12] MEDS: MONTELUKAST SODIUM 10 MG TABLET PO SCH (08:53)
[2017-02-12] MEDS: HEPARIN SODIUM,PORCINE 5,000 UNITS/ML VIAL SQ SCH ×2 (08:54→20:36)
[2017-02-12] MEDS: FOLIC ACID 1 MG TABLET PO SCH (08:54)
[2017-02-12] MEDS: METOCLOPRAMIDE HCL 10 MG TABLET PO SCH ×3 (08:54→20:36)
[2017-02-12] MEDS: DEXTROMETHORPHAN HBR/QUINIDINE 20/10 MG CAPSULE PO SCH (08:54)
[2017-02-12] MEDS: FAMOTIDINE 20 MG TABLET PO SCH ×2 (08:54→20:35)
[2017-02-12] MEDS: VALPROIC ACID 250 MG/5 ML SYRUP UDCUP PO SCH ×3 (08:54→20:35)
[2017-02-12] MEDS: OLANZapine 5 MG TABLET PO SCH ×3 (08:54→20:36)
[2017-02-12] MEDS: NYSTATIN 15 GM POWDER BOTTLE TP SCH ×2 (08:55→20:40)
[2017-02-12] MEDS: MUPIROCIN CALCIUM 2% 22 GM OINTMENT NASAL SCH ×2 (08:55→20:44)
[2017-02-12 11:02] VITALS: BP 114/78
[2017-02-12 15:28] VITALS: BP 121/97
[2017-02-12 19:24] VITALS: BP 128/84
[2017-02-12] MEDS: SIMVASTATIN 10 MG TABLET PO SCH (20:36)
[2017-02-12 23:15] VITALS: BP 118/78
[2017-02-13] MEDS: OxyCODONE HCL/ACETAMINOPHEN 5-325 MG TABLET PO PRN (01:56)
[2017-02-13 04:27] VITALS: BP 122/84
[2017-02-13 07:21] LABS: BASOPHILS % (AUTO) 0.3 % (0.0-2.0); EOSINOPHILS % (AUTO) 2.7 % (1.0-6.0); HEMATOCRIT 36.3 % (36-46); HEMOGLOBIN 11.3 g/dL (12.0-16.0); LYMPHOCYTES # (AUTO) 1.6 K/uL (1.0-4.8); LYMPHOCYTES % (AUTO) 25.1 % (22.0-44.0); MEAN CORPUSCULAR HEMOGLOBIN 28.2 pg (26.0-34.0); MEAN CORPUSCULAR HGB CONC 31.1 G/dL (31.0-37.0); MEAN CORPUSCULAR VOLUME 91 fL (80-100); MONOCYTES # (AUTO) 0.5 K/uL (0.1-1.0); MONOCYTES % (AUTO) 8.1 % (2.0-9.0); NEUTROPHILS % (AUTO) 63.8 % (40.0-70.0); PLATELET COUNT (AUTO) 258 K/uL (150-450); RED CELL DISTRIBUTION WIDTH 15.6 % (11.5-14.5); WHITE BLOOD COUNT (AUTO) 6.3 K/uL (4.5-11.0)
[2017-02-13] MEDS: HEPARIN SODIUM,PORCINE 5,000 UNITS/ML VIAL SQ SCH ×2 (07:59→20:44)
[2017-02-13] MEDS: FAMOTIDINE 20 MG TABLET PO SCH ×2 (07:59→20:43)
[2017-02-13] MEDS: DEXTROMETHORPHAN HBR/QUINIDINE 20/10 MG CAPSULE PO SCH (07:59)
[2017-02-13] MEDS: OLANZapine 5 MG TABLET PO SCH ×3 (07:59→20:43)
[2017-02-13] MEDS: MONTELUKAST SODIUM 10 MG TABLET PO SCH (07:59)
[2017-02-13] MEDS: NYSTATIN 15 GM POWDER BOTTLE TP SCH (07:59)
[2017-02-13] MEDS: FOLIC ACID 1 MG TABLET PO SCH (07:59)
[2017-02-13] MEDS: VALPROIC ACID 250 MG/5 ML SYRUP UDCUP PO SCH ×3 (07:59→20:43)
[2017-02-13] MEDS: METOCLOPRAMIDE HCL 10 MG TABLET PO SCH ×3 (07:59→20:43)
[2017-02-13] MEDS: MUPIROCIN CALCIUM 2% 22 GM OINTMENT NASAL SCH ×2 (08:00→20:43)
[2017-02-13 10:14] LABS: ALANINE AMINOTRANSFERASE 21 U/L (12-78); ALBUMIN 2.9 g/dL (3.4-5.0); ANION GAP 10 mmol/L (8-16); ASPARTATE AMINOTRANSFERASE 21 U/L (15-37); BILIRUBIN,TOTAL 0.2 mg/dL (0.1-1.0); CALCIUM, TOTAL 8.8 mg/dL (8.8-10.5); CARBON DIOXIDE 28 mmol/L (22-29); CHLORIDE 98 mmol/L (98-107); CREATININE 0.91 mg/dL (0.60-1.30); GLOMERULAR FILTR. RATE CALC > 60 mL/min (>60); POTASSIUM 4.8 mmol/L (3.5-5.1); SODIUM SERUM 136 mmol/L (136-145); UREA NITROGEN, BLOOD 24 mg/dL (7-18)
[2017-02-13 11:43] VITALS: BP 133/70
[2017-02-13 20:25] VITALS: BP 131/54
[2017-02-13] MEDS: SIMVASTATIN 10 MG TABLET PO SCH (20:43)
[2017-02-13 23:50] VITALS: BP 135/75
[2017-02-14 04:00] VITALS: BP 136/80
[2017-02-14] MEDS: NYSTATIN 15 GM POWDER BOTTLE TP SCH ×3 (05:01→20:39)
[2017-02-14 07:06] LABS: BASOPHILS % (AUTO) 0.4 % (0.0-2.0); EOSINOPHILS % (AUTO) 0.7 % (1.0-6.0); HEMOGLOBIN 11.5 g/dL (12.0-16.0); LYMPHOCYTES # (AUTO) 1.4 K/uL (1.0-4.8); LYMPHOCYTES % (AUTO) 11.7 % (22.0-44.0); MEAN CORPUSCULAR HEMOGLOBIN 28.6 pg (26.0-34.0); MEAN CORPUSCULAR HGB CONC 31.8 G/dL (31.0-37.0); MEAN CORPUSCULAR VOLUME 90 fL (80-100); MONOCYTES # (AUTO) 0.6 K/uL (0.1-1.0); MONOCYTES % (AUTO) 4.9 % (2.0-9.0); NEUTROPHILS # (AUTO) 9.7 K/uL (1.8-7.7); NEUTROPHILS % (AUTO) 82.3 % (40.0-70.0); PLATELET COUNT (AUTO) 218 K/uL (150-450); RED BLOOD CELL COUNT(AUTO) 4.01 MIL/uL (4.00-5.20); RED CELL DISTRIBUTION WIDTH 15.8 % (11.5-14.5)
[2017-02-14 07:17] LABS: WHITE BLOOD COUNT (AUTO) 15.6 K/uL (4.5-11.0)
[2017-02-14 07:24] LABS: ALBUMIN 2.5 g/dL (3.4-5.0); BILIRUBIN,TOTAL 0.2 mg/dL (0.1-1.0); CALCIUM, TOTAL 8.6 mg/dL (8.8-10.5); CREATININE 1.04 mg/dL (0.60-1.30); POTASSIUM 4.5 mmol/L (3.5-5.1); TOTAL PROTEIN, SERUM 6.6 g/dL (6.4-8.2)
[2017-02-14] MEDS: FOLIC ACID 1 MG TABLET PO SCH (08:01)
[2017-02-14] MEDS: HEPARIN SODIUM,PORCINE 5,000 UNITS/ML VIAL SQ SCH ×2 (08:01→20:38)
[2017-02-14] MEDS: OLANZapine 5 MG TABLET PO SCH ×3 (08:01→20:37)
[2017-02-14] MEDS: METOCLOPRAMIDE HCL 10 MG TABLET PO SCH ×3 (08:01→20:37)
[2017-02-14] MEDS: FAMOTIDINE 20 MG TABLET PO SCH ×2 (08:01→20:38)
[2017-02-14] MEDS: MONTELUKAST SODIUM 10 MG TABLET PO SCH (08:01)
[2017-02-14] MEDS: VALPROIC ACID 250 MG/5 ML SYRUP UDCUP PO SCH ×3 (08:01→20:38)
[2017-02-14] MEDS: DEXTROMETHORPHAN HBR/QUINIDINE 20/10 MG CAPSULE PO SCH (08:01)
[2017-02-14] MEDS: MUPIROCIN CALCIUM 2% 22 GM OINTMENT NASAL SCH ×2 (08:02→20:39)
[2017-02-14 08:20] VITALS: BP 151/80
[2017-02-14 14:02] VITALS: BP 132/73
[2017-02-14] MEDS: MAGNESIUM HYDROXIDE SUSPENSION 30 ML UDCUP PO PRN (15:26)
[2017-02-14 16:23] VITALS: BP 105/72
[2017-02-14 19:23] VITALS: BP 107/72
[2017-02-14] MEDS: SIMVASTATIN 10 MG TABLET PO SCH (20:38)
[2017-02-14 23:00] VITALS: BP 119/70
[2017-02-15 03:00] VITALS: BP 110/72
[2017-02-15 07:17] VITALS: BP 118/67
[2017-02-15] MEDS: FOLIC ACID 1 MG TABLET PO SCH (08:19)
[2017-02-15] MEDS: FAMOTIDINE 20 MG TABLET PO SCH ×2 (08:19→20:00)
[2017-02-15] MEDS: OLANZapine 5 MG TABLET PO SCH ×3 (08:19→20:00)
[2017-02-15] MEDS: DEXTROMETHORPHAN HBR/QUINIDINE 20/10 MG CAPSULE PO SCH (08:19)
[2017-02-15] MEDS: METOCLOPRAMIDE HCL 10 MG TABLET PO SCH ×3 (08:19→19:59)
[2017-02-15] MEDS: MONTELUKAST SODIUM 10 MG TABLET PO SCH (08:19)
[2017-02-15] MEDS: MUPIROCIN CALCIUM 2% 22 GM OINTMENT NASAL SCH (08:20)
[2017-02-15] MEDS: VALPROIC ACID 250 MG/5 ML SYRUP UDCUP PO SCH ×3 (08:20→19:59)
[2017-02-15] MEDS: NYSTATIN 15 GM POWDER BOTTLE TP SCH ×2 (08:20→20:00)
[2017-02-15] MEDS: HEPARIN SODIUM,PORCINE 5,000 UNITS/ML VIAL SQ SCH (08:20)
[2017-02-15] MEDS ORDERED: OxyCODONE HCL/ACETAMINOPHEN 5-325 MG TABLET PO PRN (10:00)
[2017-02-15] MEDS ORDERED: ZOLPIDEM TARTRATE 5 MG TABLET PO PRN (10:00)
[2017-02-15] MEDS ORDERED: MORPHINE SULFATE 2 MG/ML SYRINGE IVP PRN (10:00)
[2017-02-15] MEDS ORDERED: LORazepam 2 MG/ML VIAL IVP PRN (10:00)
[2017-02-15 11:15] VITALS: BP 106/68
[2017-02-15 15:30] VITALS: BP 112/70
[2017-02-15] MEDS: MAGNESIUM HYDROXIDE SUSPENSION 30 ML UDCUP PO PRN (15:59)
[2017-02-15] MEDS ORDERED: VALP5L PO (18:20)
[2017-02-15] MEDS ORDERED: HEPA500017 SQ (18:22)
[2017-02-15] MEDS ORDERED: MUPI1OIN4 NS (18:22)
[2017-02-15 19:24] VITALS: BP 115/74
[2017-02-15] MEDS: SIMVASTATIN 10 MG TABLET PO SCH (20:00)
[2017-02-15] MEDS ORDERED: HEPARIN SODIUM,PORCINE 5,000 UNITS/ML VIAL SQ SCH (21:00)
== END 2017-02-15 20:35 | DRG 641 ==
LOC: EMS 14:11 → 6N 22:15
PROVIDERS: ADMIT Internal Medicine; ATTEND Internal Medicine
DX: E87.5 Hyperkalemia (principal); E44.0 Moderate protein-calorie malnutrition; E78.5 Hyperlipidemia, unspecified; R13.10 Dysphagia, unspecified; Z93.1 Gastrostomy status; I50.9 Heart failure, unspecified; I48.91 Unspecified atrial fibrillation; E78.00 Pure hypercholesterolemia, unspecified; D64.9 Anemia, unspecified; R03.0 Elevated blood-pressure reading, without diagnosis of hypertension; K21.9 Gastro-esophageal reflux disease without esophagitis; E55.9 Vitamin D deficiency, unspecified; F25.0 Schizoaffective disorder, bipolar type; F79 Unspecified intellectual disabilities; R34 Anuria and oliguria; Z78.1 Physical restraint status; Z87.01 Personal history of pneumonia (recurrent); Z86.19 Personal history of other infectious and parasitic diseases; Z79.899 Other long term (current) drug therapy; Z68.27 Body mass index [BMI] 27.0-27.9, adult
CPT/HCPCS: 82306; 83735; 84100; 84132; 84443; 87081; 96361; 96372; 96374; 96375; 97162; 97167; 99285; G0480; J1200; J1630; J1644; J1815; J2060; J3490; J7030